=== PATIENT | male | born 1950 | race Caucasian/White ===

== ENCOUNTER → 2016-08-07 | Outpatient (CLI) | payer BC, MEDICARE ==
--- NOTE | 2016-08-08 15:31 | SLEEP ---
DATE OF STUDY: 08/07/2016 HOME SLEEP STUDY ATTENDING PHYSICIAN: Dr. Thomas Amaral. DATE OF STUDY: 08/07/2016. The patient is 66 years old who weighs 230 pounds and 75 inches tall with a BMI of 28.7. Somerset score was 4. Home sleep study was performed by [facility]. The total recording time was 385 minutes. During the night study, the patient had 2 central apneas and 10 obstructive apneas, no mixed apneas and 2 hypopneas. The patient's apnea hypopnea index was 2.2 per hour. Supine index 3.8 per hour. The patient's average oxygen saturation remained around 90% with the lowest of 82%. 171 minutes were spent in oxygen saturation less than 90%. Mean heart rate was 67 beats per minute. IMPRESSION: 1. No clinically significant sleep disordered breathing. 2. Nocturnal hypoxia could be secondary to obesity hypoventilation syndrome; however, I would recommend ruling out any cardiac or pulmonary causes for nocturnal hypoxia. RECOMMENDATIONS: 1. The patient does not require CPAP. 2. The patient would benefit from 2 liters of supplemental oxygen at night time and further workup of nocturnal hypoxia as discussed above. CHARLINE COONEY MD DR: ZULAY/haylie JOB#: [id number] / [id number] THOMAS Ramírez MD
== END | disposition home or self-care (01) ==
LOC: RT 09:02
PROVIDERS: ATTEND Family Medicine
DX: G47.33 Obstructive sleep apnea (adult) (pediatric) (principal); R06.83 Snoring; R53.83 Other fatigue
CPT/HCPCS: G0399

== ENCOUNTER → 2016-11-12 | Outpatient (CLI) | payer BC, MEDICARE ==
--- NOTE | 2016-11-12 09:05 | RAD ---
Left lower extremity venous duplex study 11/12/2016 Clinical History: Left leg swelling. Technique: Using a combination of real time ultrasound imaging and color-flow and pulse Doppler imaging techniques along with graded compression and augmentation, duplex evaluation of the deep venous system of the left lower extremity was performed. Multiple images were obtained. Findings: There is no sonographic evidence of deep venous thrombosis involving the visualized deep venous structures of the left lower extremity. Impression: Negative study.
== END | disposition home or self-care (01) ==
LOC: US 08:22
PROVIDERS: ATTEND Family Medicine
DX: M79.89 Other specified soft tissue disorders (principal); R60.0 Localized edema
CPT/HCPCS: 93971

== ENCOUNTER → 2017-01-23 | Day surgery (SDC) | payer BC, MEDICARE ==
[~2017-01-23] MED LIST: IV RINGERS,LACTATED 1000ML 1,000 ML IV SCH; LIDOCAINE 2% PF Vial for OR 5 ML VIAL. ONE; PROPOFOL 20 ML IV ONE
[2017-01-23 13:03] VITALS: BP 119/80
--- NOTE | 2017-01-23 15:54 | CONS ---
DATE OF CONSULTATION: 01/23/2017 REFERRING PHYSICIAN: Dr. Thomas Amaral. REASON FOR CONSULTATION: Colorectal screening. HISTORY OF PRESENT ILLNESS: This is a 66-year-old male with past medical history significant for wisdom teeth extractions, otherwise has been in good health, was seen for a screening colon examination, last exam was approximately 10 years ago, no change in bowel habits, diarrhea or constipation. No melena or hematochezia. No change in weight or appetite. He has otherwise been in good health without additional complaints. PAST MEDICAL HISTORY: Status post wisdom teeth extractions. ALLERGIES: None. MEDICATIONS: None. FAMILY HISTORY AND SOCIAL HISTORY: He is a nonsmoker, social drinker. There is a history of myocardial infarctions with several of his grandparents and his father. REVIEW OF SYSTEMS: Per records. PHYSICAL EXAMINATION: GENERAL: Reveals a well-nourished, well-developed male. VITAL SIGNS: Temperature is 97.9, pulse 69, respiratory rate 18. HEENT: Normocephalic and atraumatic head. Pupils and extraocular muscles not tested. Sclerae anicteric. NECK: Supple. LUNGS: Clear. CARDIOVASCULAR: Reveals S1, S2 without S3, S4 or appreciable murmur. ABDOMEN: Soft abdomen, normal bowel sounds, without appreciable hepatosplenomegaly. EXTREMITIES: Reveals no cyanosis, clubbing or edema. IMPRESSION: Colorectal screening is warranted at this time. Risks and benefits of the procedure including risks of hemorrhage or perforation were discussed. The patient is willing to proceed. KIM PEDERSEN MD DR: SUE/haylie JOB#: [id number] / [id number] THOMAS Ramírez MD
--- NOTE | 2017-01-24 11:15 | PATHOLOGY ---
PATHOLOGY REPORT * * * * * * * * FINAL DIAGNOSIS: Colon biopsies, sigmoid polyp: - Tubular adenoma. COMMENT: There is no high grade dysplasia or evidence of malignancy. (JPM:mml; 01/24/2017) REPORT ELECTRONICALLY SIGNED BY: Donovan Martins M.D. DATE/TIME: 01/24/2017 11:14 * * * * * * * * GROSS PATHOLOGY: Received in formalin labeled "Wei Combs, sigmoid polyp," are 3 segments of askew soft tissue measuring 0.9 x 1.0 x 0.4 cm in aggregate dimensions and ranging from 0.3 to 0.4 cm in maximum dimension. The specimen is submitted entirely in cassette A1. (TSD; 01/23/2017) INITIAL CPT CODE(S): A; 18626 Professional services performed by [facility] [place] [address] Technical services performed by [facility] at [address] [place] [address], [facility] [address] [address]. SPECIMEN(S) RECEIVED: A.Sigmoid polyp CLINICAL HISTORY: Screening PATIENT: WEI COMBS /AGE: 1102/20/1950 (Age: 66) PATIENT #: [id number] ALT CASE #: SPECIMEN COLLECTION DATE: 01/23/2017 SPECIMEN RECEIVED DATE: 01/23/2017 [facility] - [address] [place] [address] - PHONE: [phone] * * * END OF REPORT * * *
== END | disposition home or self-care (01) ==
LOC: SURG 10:57
PROVIDERS: ATTEND Internal Medicine Gastroenterology
DX: Z12.11 Encounter for screening for malignant neoplasm of colon (principal); K64.0 First degree hemorrhoids; D12.5 Benign neoplasm of sigmoid colon; K57.30 Diverticulosis of large intestine without perforation or abscess without bleeding
CPT/HCPCS: 45385; J2704; J2001

== ENCOUNTER → 2019-10-12 | Outpatient (CLI) | payer MEDICARE, OTHER ==
[2017-01-23 13:03] VITALS: BP 119/80
--- NOTE | 2019-10-12 14:29 | RAD ---
Bilateral lower extremity superficial venous duplex ultrasound study for venous reflux. TECHNIQUE AND FINDINGS: Real-time grayscale and color and spectral Doppler evaluation of the greater and lesser saphenous veins is performed bilaterally. The proximal right greater saphenous vein measures 6.1 mm in diameter, however there is no venous reflux with color or spectral Doppler interrogation during resting and Valsalva. The left greater saphenous vein measures 5.1 mm in diameter and once again fails to demonstrate any reflux with color spectral Doppler interrogation with both resting and Valsalva. The bilateral lesser saphenous veins measure 2 mm in diameter proximally and also do not demonstrate venous reflux with color spectral Doppler interrogation during resting or Valsalva maneuvers. IMPRESSION: 1. No evidence of greater or lesser saphenous venous insufficiency. The right greater saphenous vein is mildly dilated proximally. Electronically signed by: Jose David Vigil MD (10/12/2019 2:26 PM) [id number]
== END | disposition home or self-care (01) ==
LOC: US 09:25
PROVIDERS: ATTEND Family Medicine
DX: I83.891 Varicose veins of right lower extremity with other complications (principal)
CPT/HCPCS: 93970